=== PATIENT | male | born 1990 | race Caucasian/White ===

== ENCOUNTER 2018-11-01 01:31 | Emergency (ER) | payer BC ==
[2018-11-01] MEDS ORDERED: SODIUM CHLORIDE 0.9% 1,000 ML IV ONE (02:17)
--- NOTE | 2018-11-01 02:22 | ED ---
Abdominal Pain HPI - General Chief Complaint: Abdominal Pain Stated Complaint: Abd/Lower Back Pain Time Seen by Provider: 11/01/18 02:12 Source: patient Mode of arrival: ambulatory Limitations: no limitations - History of Present Illness Initial Comments: This patient is 28-year-old man who presents to be evaluated for abdominal pain. He states it started yesterday in the evening. It was initially lower in abdomen and he indicated the suprapubic area. He stated that over the course of the past evening and then today the pain went up to the epigastric area and then seem to be back in the lower abdomen with a little bit of right flank discomfort. He states the pain is kind of a dull aching. He rates it mild to moderate. It is constant. He has not noted worsening or relieving factors. He has not had any associated symptoms. There is no radiation of pain to the scrotum or testicles. No change in urination or urethral discharge. No fever or chills. No vomiting area no change in bowel movements. MD Complaint: abdominal pain Onset/Timin -: days(s) Location: suprapubic Radiation: none Migration to: epigastric, R flank Severity: mild Quality: dull Consistency: constant Improves With: nothing Worsens With: nothing Associated Symptoms: denies other symptoms - Related Data Previous Rx's Medication Instructions Recorded Famotidine [Pepcid] 20 mg PO BID #14 tablet 11/01/18 Famotidine [Pepcid] 20 mg PO BID #14 tablet 11/01/18 Allergies Allergy/AdvReac Type Severity Reaction Status Date / Time No Known Allergies Allergy Verified 11/01/18 01:47 Review of Systems ROS Statement: Those systems with pertinent positive or pertinent negative responses have been documented in the HPI. ROS Other: All systems not noted in ROS Statement are negative. Constitutional: Denies: fever, chills Respiratory: Denies: cough, dyspnea Cardiovascular: Denies: chest pain, palpitations, edema Gastrointestinal: Reports: abdominal pain. Denies: nausea, diarrhea, constipation, melena, hematochezia Genitourinary: Denies: urgency, dysuria, frequency, hematuria, discharge, testicular pain, testicular mass Musculoskeletal: Denies: back pain Skin: Denies: rash Past Medical History Past Medical History: No Reported History History of Any Multi-Drug Resistant Organisms: None Reported Past Surgical History: Adenoidectomy Past Psychological History: No Psychological Hx Reported Smoking Status: Never smoker Past Alcohol Use History: Occasional Past Drug Use History: None Reported General Exam Limitations: no limitations General appearance: alert, in no apparent distress Head exam: Present: atraumatic, normocephalic Eye exam: Present: normal appearance. Absent: scleral icterus, conjunctival injection Neck exam: Present: normal inspection Respiratory exam: Present: normal lung sounds bilaterally. Absent: respiratory distress, wheezes, rales, rhonchi, stridor Cardiovascular Exam: Present: regular rate, normal rhythm, normal heart sounds. Absent: systolic murmur, diastolic murmur, rubs, gallop GI/Abdominal exam: Present: soft, normal bowel sounds. Absent: distended, tenderness, guarding, rebound, rigid, mass, pulsatile mass, hernia Extremities exam: Present: normal inspection, normal capillary refill. Absent: pedal edema, calf tenderness Back exam: Present: normal inspection. Absent: CVA tenderness (R), CVA tenderness (L) Neurological exam: Present: alert Skin exam: Present: warm, dry, intact, normal color. Absent: rash Course Vital Signs 11/01/18 11/01/18 01:43 03:13 Temperature 98.0 F Pulse Rate 59 L 51 L Respiratory 16 15 Rate Blood Pressure 138/89 128/75 O2 Sat by Pulse 100 100 Oximetry Medical Decision Making - Lab Data Result diagrams: 11/01/18 02:10 11/01/18 02:10 Lab Results 11/01/18 11/01/18 11/01/18 Range/Units 02:10 02:10 02:10 WBC 7.8 (3.8-10.6) k/uL RBC 5.29 (4.30-5.90) m/uL Hgb 15.3 (13.0-17.5) gm/dL Hct 44.5 (39.0-53.0) % MCV 84.1 (80.0-100.0) fL MCH 28.9 (25.0-35.0) pg MCHC 34.3 (31.0-37.0) g/dL RDW 13.1 (11.5-15.5) % Plt Count 200 (150-450) k/uL Neutrophils % 71 % Lymphocytes % 21 % Monocytes % 4 % Eosinophils % 2 % Basophils % 0 % Neutrophils # 5.6 (1.3-7.7) k/uL Lymphocytes # 1.6 (1.0-4.8) k/uL Monocytes # 0.3 (0-1.0) k/uL Eosinophils # 0.1 (0-0.7) k/uL Basophils # 0.0 (0-0.2) k/uL Sodium 139 (137-145) mmol/L Potassium 3.7 (3.5-5.1) mmol/L Chloride 105 (98-107) mmol/L Carbon Dioxide 26 (22-30) mmol/L Anion Gap 8 mmol/L BUN 16 (9-20) mg/dL Creatinine 0.91 (0.66-1.25) mg/dL Est GFR (CKD-EPI)AfAm >90 (>60 ml/min/1.73 sqM) Est GFR (CKD-EPI)NonAf >90 (>60 ml/min/1.73 sqM) Glucose 121 H (74-99) mg/dL Calcium 9.6 (8.4-10.2) mg/dL Total Bilirubin 1.1 (0.2-1.3) mg/dL AST 26 (17-59) U/L ALT 32 (21-72) U/L Alkaline Phosphatase 69 (38-126) U/L C-Reactive Protein <5.0 (<10.0) mg/L Total Protein 7.6 (6.3-8.2) g/dL Albumin 4.7 (3.5-5.0) g/dL Amylase 72 (30-110) U/L Lipase 110 (23-300) U/L Urine Color Yellow Urine Appearance Clear (Clear) Urine pH 6.0 (5.0-8.0) Ur Specific [place] 1.030 (1.001-1.035) Urine Protein 1+ H (Negative) Urine Glucose (UA) Negative (Negative) Urine Ketones 1+ H (Negative) Urine Blood Negative (Negative) Urine Nitrite Negative (Negative) Urine Bilirubin Negative (Negative) Urine Urobilinogen <2.0 (<2.0) mg/dL Ur Leukocyte Esterase Negative (Negative) Urine RBC <1 (0-5) /hpf Urine WBC 2 (0-5) /hpf Urine Mucus Many H (None) /hpf Disposition Clinical Impression: Abdominal pain Disposition: HOME SELF-CARE Condition: Good Instructions: Abdominal Pain (ED) Prescriptions: Famotidine [Pepcid] 20 mg PO BID #14 tablet Famotidine [Pepcid] 20 mg PO BID #14 tablet Is patient prescribed a controlled substance at d/c from ED?: No Referrals: Kelly Overton III, MD [Primary Care Provider] - 1-2 days
[2018-11-01 02:36] LABS: Basophils % (A) 0 %; Eosinophils # (A) 0.1 k/uL (0-0.7); Eosinophils % (A) 2 %; HCT 44.5 % (39.0-53.0); HGB 15.3 gm/dL (13.0-17.5); Lymphocytes # (A) 1.6 k/uL (1.0-4.8); Lymphocytes % (A) 21 %; MCH 28.9 pg (25.0-35.0); MCHC 34.3 g/dL (31.0-37.0); MCV 84.1 fL (80.0-100.0); Monocytes # (A) 0.3 k/uL (0-1.0); Monocytes % (A) 4 %; Neutrophils # (A) 5.6 k/uL (1.3-7.7); Neutrophils % (A) 71 %; Platelet Count 200 k/uL (150-450); RBC 5.29 m/uL (4.30-5.90); RDW 13.1 % (11.5-15.5); WBC 7.8 k/uL (3.8-10.6)
[2018-11-01 02:40] LABS: Appearance,Urine Clear (Clear); Bilirubin,Urine Negative (Negative); Blood,Urine Negative (Negative); Color,Urine Yellow; Glucose,Urine (UA) Negative (Negative); Ketones,Urine 1+ (Negative); Leukocyte Esterase,Urine Negative (Negative); Mucus,Urine Many /hpf; Nitrite,Urine Negative (Negative); Protein,Urine 1+ (Negative); RBC,Urine <1 /hpf (0-5); Urobilinogen,Urine <2.0 mg/dL (<2.0); WBC,Urine 2 /hpf (0-5)
[2018-11-01 02:59] LABS: ALT 32 U/L (21-72); AST 26 U/L (17-59); Albumin 4.7 g/dL (3.5-5.0); Alkaline Phosphatase 69 U/L (38-126); Amylase 72 U/L (30-110); Anion Gap 8 mmol/L; Blood Urea Nitrogen 16 mg/dL (9-20); Calcium 9.6 mg/dL (8.4-10.2); Carbon Dioxide 26 mmol/L (22-30); Chloride 105 mmol/L (98-107); Glucose 121 mg/dL (74-99); Lipase 110 U/L (23-300); Potassium 3.7 mmol/L (3.5-5.1); Sodium 139 mmol/L (137-145); Total Bilirubin 1.1 mg/dL (0.2-1.3); Total Protein 7.6 g/dL (6.3-8.2)
[2018-11-01 03:13] LABS: C Reactive Protein <5.0 mg/L (<10.0)
[2018-11-01 05:24] VITALS: BP 125/75; PULSE 52; RESP 16; TEMP 98.1
== END 2018-11-01 05:22 | disposition home or self-care (01) ==
LOC: EC 01:31
DX: R10.30 Lower abdominal pain, unspecified (principal); R10.13 Epigastric pain
CPT/HCPCS: 36415; 80053; 81001; 82150; 83690; 85025; 86140; 96360; 99284

== ENCOUNTER → 2019-03-04 | Outpatient (CLI) | payer BC ==
--- NOTE | 2019-03-04 17:13 | US ---
EXAMINATION TYPE: US thyroid st tissue head/neck DATE OF EXAM: 03/04/2019 COMPARISON: NONE CLINICAL HISTORY: 28-year-old male R22.1 mass and lump Patient states he feels lump when he swallows. TECHNIQUE: Multiple sonographic images of the thyroid gland are obtained. FINDINGS: GLAND SIZE: Right Lobe: 5.0 x 1.3 x 1.7 cm Overall Parenchyma: homogenous Left Lobe: 4.6 x 0.9 x 1.7 cm Overall Parenchyma: homogeneous Isthmus Thickness: 0.3 cm NODULES RIGHT: # of nodules measured on right: 0 LEFT: # of nodules measured on left: 0 ISTHMUS: # of nodules measured in the isthmus: 0 Bilateral neck scanned, no evidence of lymphadenopathy. IMPRESSION: Borderline thyromegaly. Overall homogeneous glandular parenchyma without discrete nodule.
== END | disposition home or self-care (01) ==
LOC: RADUSWWP 15:39
PROVIDERS: ATTEND Family Medicine
DX: R22.1 Localized swelling, mass and lump, neck (principal)
CPT/HCPCS: 76536

== ENCOUNTER → 2019-03-21 | Outpatient (CLI) | payer BC ==
--- NOTE | 2019-03-21 10:45 | FL ---
EXAMINATION TYPE: FL barium swallow DATE OF EXAM: 03/21/2019 CLINICAL HISTORY: Dysphagia, localized swelling mass lump in neck TECHNIQUE: A double contrast esophagram is performed utilizing air and barium. Fluoroscopy time: 29 seconds Images: 43 COMPARISON: None FINDINGS: The esophagus shows normal motility and emptying into the stomach. No evidence of hiatal h ernia or stricture noted. No significant gastroesophageal reflux was seen during real time performanc e of this study. IMPRESSION: No significant abnormality is seen to account for patient's symptoms.
== END | disposition home or self-care (01) ==
LOC: RADFLWHC 08:10
PROVIDERS: ATTEND Family Medicine
DX: R22.1 Localized swelling, mass and lump, neck (principal)
CPT/HCPCS: 74220

== ENCOUNTER 2019-06-04 10:18 | Emergency (ER) | payer BC ==
[2019-06-04 10:30] VITALS: BP 133/75; PULSE 77; RESP 16; TEMP 98
--- NOTE | 2019-06-04 11:01 | ED ---
Skin/Abscess/FB HPI - General Chief complaint: Skin/Abscess/Foreign Body Stated complaint: Inquicker-Splinter Time Seen by Provider: 06/04/19 10:34 Source: patient, family, RN notes reviewed, old records reviewed Limitations: no limitations - History of Present Illness Initial comments: 28-year-old male presents today with right posterior thigh splinter. Patient reports he sitting on a wooden bench and slid. The splinter went through his shorts and twisted. This was on Monday. Family remove the splinter but patent 8 continues to have redness and swelling over the posterior thigh. - Related Data Previous Rx's Medication Instructions Recorded Cephalexin [Keflex] 500 mg PO Q8HR #21 cap 06/04/19 Allergies Allergy/AdvReac Type Severity Reaction Status Date / Time No Known Allergies Allergy Verified 06/04/19 10:44 Review of Systems ROS Statement: Those systems with pertinent positive or pertinent negative responses have been documented in the HPI. ROS Other: All systems not noted in ROS Statement are negative. Past Medical History Past Medical History: No Reported History History of Any Multi-Drug Resistant Organisms: None Reported Past Surgical History: Adenoidectomy Past Psychological History: No Psychological Hx Reported Smoking Status: Never smoker Past Alcohol Use History: Occasional Past Drug Use History: None Reported General Exam - General Exam Comments Initial Comments: 28-year-old male. Alert and oriented. No distress. General: Well appearing, well nourished, in no distress. Oriented x 3, normal mood and affect . Ambulating without difficulty. Skin: Good turgor, no rash, unusual bruising or prominent lesions Hair: Normal texture and distribution. HEENT: Head: Normocephalic, atraumatic, no visible or palpable masses, depressi ons, or scaring. Eyes: Visual acuity intact, conjunctiva clear, sclera non-icteric, EOM intact, PERRL. Ears: EACs clear, TMs translucent & cone of light visualized. hearing intact. Nose: No external lesions, mucosa non-inflamed, septum and turbinates normal Mouth: Mucous membranes moist, no mucosal lesions. Teeth/Gums: No obvious caries or periodontal disease. No gingival inflammation or significant resorption. Pharynx: Mucosa non-inflamed, no tonsillar hypertrophy or exudate Neck: Supple, without lesions, bruits, or adenopathy, thyroid non-enlarged and non-tender Heart: No cardiomegaly or thrills; regular rate and rhythm, no murmur or gallop Lungs: Clear to auscultation and percussion Abdomen: Bowel sounds normal, no tenderness, organomegaly, masses, or hernia Back: Spine normal without deformity or tenderness, no CVA tenderness Extremities: No amputations or deformities, as area of 3 cm erythema with a papule. Papules open and the splinter was removed. Musculoskeletal: Normal gait and station. No misalignment, asymmetry, crepitation, defects, tenderness, masses, effusions, decreased range of motion, instability, atrophy or abnormal strength or tone in the head, neck, spine, ribs, pelvis or extremities. Neurologic: CN 2-12 normal. Sensation to pain, touch, and proprioception normal. DTRs normal in upper and lower extremities. No pathologic reflexes. Limitations: no limitations Course Vital Signs 06/04/19 10:27 Temperature 98.0 F Pulse Rate 77 Respiratory 16 Rate Blood Pressure 133/75 O2 Sat by Pulse 99 Oximetry Medical Decision Making - Medical Decision Making 28-year-old male presents after having a splinter in the right posterior thigh. This has some area of erythema and induration measuring 3 7 m x 4 cm with a palpable in the middle. Papules opened with a set of tweezers and splinter was removed. Aerobic wound culture was obtained. We'll put the Patient on antibiotics for short course for cellulitis. I discussed following up with primary care doctor. all questions answered. Disposition Clinical Impression: Cellulitis Disposition: HOME SELF-CARE Condition: Good Instructions (If sedation given, give patient instructions): Cellulitis (ED) Additional Instructions: Please use medication as discussed. Please follow up with family doctor if symptoms have not improved over the next two days. Please return to the emergency room if your symptoms increase or worsen or for any other concerns. Patient advised to do warm compresses over the area of redness to promote further drainage. Prescriptions: Cephalexin [Keflex] 500 mg PO Q8HR #21 cap Is patient prescribed a controlled substance at d/c from ED?: No Referrals: Kelly Overton III, MD [Primary Care Provider] - 1-2 days Time of Disposition: 10:59
== END 2019-06-04 11:05 | disposition home or self-care (01) ==
LOC: EC 10:18
DX: L03.115 Cellulitis of right lower limb (principal)
CPT/HCPCS: 87070; 87205; 99284

== ENCOUNTER → 2020-08-11 | Outpatient (CLI) | payer BC ==
--- NOTE | 2020-08-11 08:21 | US ---
EXAMINATION TYPE: US abdomen complete DATE OF EXAM: 08/11/2020 COMPARISON: 04/09/2015 CLINICAL HISTORY: 30-year-old male R10.30 lower abdominal pain. TECHNIQUE: Multiple sonographic images of the abdomen are obtained. FINDINGS: EXAM MEASUREMENTS: Liver Length: 11.4 cm Gallbladder Wall: 0.1 cm CBD: 0.4 cm Spleen: 11.1 cm Right Kidney: 10.6 x 4.6 x 4.6 cm Left Kidney: 11.0 x 4.8 x 4.4 cm Pancreas: wnl Liver: wnl Gallbladder: wnl Evidence for sonographic Hwang's sign: No CBD: wnl Spleen: wnl Kidneys: No hydronephrosis. Upper IVC: wnl Abd Aorta: linear echogenic area seen midline in transverse and sagittal plane extending down from t he level of the SMA. Unable to determine if this is artifact. IMPRESSION: 1. A linear filling defect projects within the abdominal aorta extending down from the level of the S MA, seen in both sagittal and transverse planes. Unable to determine if this represents artifact or p athology such as a dissection. A conventional contrast enhanced CT of the abdomen and pelvis can furt her evaluate. 2. Otherwise, unremarkable sonographic examination of the abdomen. A Red level critical message alert has been initiated for Kelly Overton III, MD via the [employer] Critical Results System on 08/11/2020 8:18 AM. This message alert has been sent to Kelly joseph III, MD via the preferences provided by the clinician for the receipt of Radiology Critical Findi ngs. Message ID [id number].
== END | disposition home or self-care (01) ==
LOC: RADUSWWP 07:31
PROVIDERS: ATTEND Family Medicine
DX: R93.5 Abnormal findings on diagnostic imaging of other abdominal regions, including retroperitoneum (principal); R10.30 Lower abdominal pain, unspecified
CPT/HCPCS: 76700

== ENCOUNTER → 2020-08-11 | Outpatient (CLI) | payer BC ==
--- NOTE | 2020-08-11 12:43 | CT ---
EXAMINATION TYPE: CT abdomen pelvis w con DATE OF EXAM: 08/11/2020 COMPARISON: Ultrasound abdomen earlier today HISTORY: Lower abdominal pain, abnormal US results CT DLP: 447.6 mGycm, Automated Exposure Control for Dose Reduction was Utilized. CONTRAST: CT scan of the abdomen and pelvis is performed with oral and with IV Contrast, patient injected with 100 mL of Isovue 300. FINDINGS: LUNG BASES: No significant abnormality is appreciated. LIVER/GB: No significant abnormality is appreciated. PANCREAS: No significant abnormality is seen. SPLEEN: No significant abnormality is seen. ADRENALS: No significant abnormality is seen. KIDNEYS: Symmetric cortical medullary uptake and excretion from both kidneys without hydronephrosis s een bilaterally. BOWEL: Oral Contrast reaches level of sigmoid colon. No suspicious small or large bowel dilatation. PROSTATE/SEMINAL VESICLES: Prostate gland normal in size. Occasional scattered left-sided pelvic phle boliths. LYMPH NODES: No greater than 1cm abdominal or pelvic lymph nodes are appreciated. Prominent but subc entimeter lymph nodes throughout the mesentery. OSSEOUS STRUCTURES: No significant abnormality is seen. OTHER: The aorta shows satisfactory opacification without aneurysm or linear hypodensity to suggest d issection. IMPRESSION: No abdominal aortic dissection. No suspicious acute findings.
== END | disposition home or self-care (01) ==
LOC: RADCTMAIN 10:13
PROVIDERS: ATTEND Family Medicine
DX: R10.30 Lower abdominal pain, unspecified (principal); R93.5 Abnormal findings on diagnostic imaging of other abdominal regions, including retroperitoneum
CPT/HCPCS: 74177; Q9967

== ENCOUNTER → 2020-11-02 | Outpatient (CLI) | payer BC ==
--- NOTE | 2020-11-11 12:15 | EM ---
EVENT MONITOR Patient was monitored between the and the October. The rhythm strip revealed sinus mechanism with normal conduction. There was no evidence of atrial fibrillation or ventricular tachycardia. Episodes of sinus tachycardia were noted. ROBSON / WILLYN: [id number] /
== END | disposition home or self-care (01) ==
LOC: RADECHMAIN 12:22
PROVIDERS: ATTEND Family Medicine
DX: R00.0 Tachycardia, unspecified (principal)
CPT/HCPCS: 93270

== ENCOUNTER → 2021-07-26 | Outpatient (CLI) | payer BC ==
--- NOTE | 2021-07-27 04:38 | MR ---
EXAMINATION TYPE: MR brain wo/w con DATE OF EXAM: 07/26/2021 COMPARISON: None HISTORY: Headache. Left side pain. CONTRAST: Standard multiplanar, multisequence MRI departmental protocol utilizing 8ml mL intravenous Gadavist g adolinium contrast. Ventricles and sulci appear normal. There is no mass effect nor midline shift. Diffusion images show no evidence of an acute infarct. Sella turcica appears normal. Optic chiasm is normal. Corpus callosum appears normal. Sharpe-white shannen er structures have normal signal pattern. There is no evidence of cerebral edema. Brainstem is intact . There is no pathologic enhancement. There is normal enhancement of the venous sinuses. There is mucosal thickening in the maxillary and ethmoid sinuses. IMPRESSION: Negative MR scan of the brain. Maxillary and ethmoid sinusitis noted.
== END | disposition home or self-care (01) ==
LOC: RADMRIMAIN 18:34
PROVIDERS: ATTEND Nurse Practitioner Family
DX: R51.9 Headache, unspecified (principal); J32.2 Chronic ethmoidal sinusitis
CPT/HCPCS: 70553; A9585

== ENCOUNTER 2021-10-13 09:14 | Day surgery (SDC) | payer BC ==
[2021-10-11 11:13] VITALS: BMI 21.7
[~2021-10-13 09:14] MED LIST: LACTATED RINGERS 1,000 ML IV SCH
[2021-10-13 09:37] VITALS: TEMP 96.9
[2021-10-13] MEDS ORDERED: PROPOFOL 10 MG/ML 20 ML VIAL IV ONE (10:25)
--- NOTE | 2021-10-13 10:37 | P.PCN ---
Date of Procedure: 10/13/21 Procedure(s) Performed: BRIEF HISTORY: Patient is a 31-year-old pleasant white male scheduled for an elective colonoscopy as a part of evaluation change in bowel habits for the last 2 months duration. His been having alternating diarrhea and constipation but no rectal bleeding. He denies any family history of inflammatory bowel disease. PROCEDURE PERFORMED: Colonoscopy. PREOPERATIVE DIAGNOSIS: Change in bowel habits of 2 months duration. IV sedation per Anesthesia. PROCEDURE: After informed consent was obtained, the patient, was brought into the endoscopy unit. IV sedation was administered by Anesthesia under continuous monitoring. Digital rectal examination was normal. Initially the Olympus CF-160 flexible video colonoscope was then inserted in the rectum, gradually advanced into the cecum without any difficulty. Careful examination was performed as the scope was gradually being withdrawn. Ileocecal valve and the appendiceal orifice were visualized and appeared normal. Terminal ileum was intubated and 20 cm visualized and appeared normal. Prep was excellent. Mucosa of the cecum, ascending colon, transverse colon, descending colon, sigmoid colon, and rectum appeared normal. Retroflexion was performed in the rectum and no lesions were seen. The patient tolerated the procedure well. IMPRESSION: Normal-appearing colon from rectum to cecum with no evidence of colorectal neoplasia . Normal-appearing terminal ileum with no evidence of ileitis RECOMMENDATIONS: Findings of this examination were discussed with the patient as well as his family. He was advised to be on a high-fiber diet and take fiber supplements on a regular basis.
[2021-10-13 11:07] VITALS: BP 125/60; PULSE 50; RESP 20
== END 2021-10-13 11:10 | disposition home or self-care (01) ==
LOC: ORWHC2ENDO 09:14
PROVIDERS: ATTEND Internal Medicine Gastroenterology
DX: R19.4 Change in bowel habit (principal)
CPT/HCPCS: 45378; J2704

== ENCOUNTER 2022-08-12 18:37 | Emergency (ER) | payer BC ==
[2022-08-12] MEDS ORDERED: SODIUM CHLORIDE 0.9% 1,000 ML IV STA (18:54)
[2022-08-12] MEDS ORDERED: LORazepam 2 MG/ML INJ IV STA (18:55)
--- NOTE | 2022-08-12 19:11 | ED ---
General Adult HPI - General Chief complaint: Chest Pain Stated complaint: Chest pain Time Seen by Provider: 08/12/22 18:49 Source: patient, RN notes reviewed, old records reviewed Mode of arrival: ambulatory Limitations: no limitations - History of Present Illness Initial comments: 32-year-old male presents for evaluation of lightheadedness, and central chest pain. Patient states he's had chronic chest pain and has had cardiac testing in the past. He states this is a daily occurrence. He has worsened this evening while eating dinner. Patient was eating a restaurant, had had salad and rales he developed worsening anterior chest pain and was quite lightheaded and almost passing out. - Related Data Home Medications Medication Instructions Recorded Confirmed No Known Home Medications 10/11/21 10/13/21 Allergies Allergy/AdvReac Type Severity Reaction Status Date / Time No Known Allergies Allergy Verified 10/13/21 09:35 Review of Systems ROS Statement: Those systems with pertinent positive or pertinent negative responses have been documented in the HPI. ROS Other: All systems not noted in ROS Statement are negative. Past Medical History Past Medical History: No Reported History History of Any Multi-Drug Resistant Organisms: None Reported Past Surgical History: Adenoidectomy Past Anesthesia/Blood Transfusion Reactions: No Reported Reaction Past Psychological History: No Psychological Hx Reported Smoking Status: Never smoker Past Alcohol Use History: Occasional Past Drug Use History: None Reported - Past Family History Mother Family Medical History: No Reported History General Exam Limitations: no limitations General appearance: anxious, in distress Head exam: Present: atraumatic, normocephalic Eye exam: Present: normal appearance, PERRL ENT exam: Present: normal exam Neck exam: Present: normal inspection. Absent: tenderness, meningismus Respiratory exam: Absent: respiratory distress, wheezes, rales Cardiovascular Exam: Present: normal rhythm, tachycardia GI/Abdominal exam: Present: soft. Absent: distended, tenderness, guarding Extremities exam: Present: normal inspection, normal capillary refill. Absent: pedal edema Neurological exam: Present: alert Psychiatric exam: Present: anxious Skin exam: Present: warm, pallor. Absent: cyanosis Course Vital Signs 08/12/22 18:40 Temperature 98.1 F Pulse Rate 136 H Respiratory 20 Rate Blood Pressure 134/65 O2 Sat by Pulse 98 Oximetry - Reevaluation(s) Reevaluation #1: 08/12/22 19:10 further history does indicate that the patient had taken a marijuana gummy earlier in the evening. EKG Findings - EKG Comments: EKG Findings:: EKG: Obtained at 1846, sinus tachycardia, rate of 116, ID interval 125, QRS duration 97, QTC 382, no ST segment. Repeat EKG: Obtained at 1856, sinus rhythm with a rate of 97, ID interval 156, QRS duration 96, QTC [address] segment elevation. Medical Decision Making - Medical Decision Making 32-year-old male with an episode of chest pain, history does indicate that this may have been related to marijuana ingestion. Patient is quite anxious upon arrival. EKG is sinus without ST segment elevation. Chest x-ray clear. All laboratory testing is unremarkable. Patient does return to normal while in the emergency department without further complaint. He will monitor symptoms, follow with primary care physician. - Lab Data Result diagrams: 08/12/22 19:37 08/12/22 19:37 Lab Results 08/12/22 08/12/22 08/12/22 Range/Units 19:23 19:23 19:37 WBC 5.0 (3.8-10.6) k/uL RBC 4.91 (4.30-5.90) m/uL Hgb 14.8 (13.0-17.5) gm/dL Hct 40.9 (39.0-53.0) % MCV 83.3 (80.0-100.0) fL MCH 30.2 (25.0-35.0) pg MCHC 36.3 (31.0-37.0) g/dL RDW 12.1 (11.5-15.5) % Plt Count 183 (150-450) k/uL MPV 7.7 Neutrophils % (Manual) 49 % Lymphocytes % (Manual) 43 % Monocytes % (Manual) 3 % Eosinophils % (Manual) 4 % Basophils % (Manual) 1 % Neutrophils # (Manual) 2.45 (1.3-7.7) k/uL Lymphocytes # (Manual) 2.15 (1.0-4.8) k/uL Monocytes # (Manual) 0.15 (0-1.0) k/uL Eosinophils # (Manual) 0.20 (0-0.7) k/uL Basophils # (Manual) 0.05 (0-0.2) k/uL Nucleated RBCs 0 (0-0) /100 WBC Manual Slide Review Performed RBC Morphology Normal PT (9.0-12.0) sec INR (<1.2) APTT (22.0-30.0) sec D-Dimer (<0.60) mg/L FEU Sodium (137-145) mmol/L Potassium (3.5-5.1) mmol/L Chloride (98-107) mmol/L Carbon Dioxide (22-30) mmol/L Anion Gap mmol/L BUN (9-20) mg/dL Creatinine (0.66-1.25) mg/dL Est GFR (CKD-EPI)AfAm (>60 ml/min/1.73 sqM) Est GFR (CKD-EPI)NonAf (>60 ml/min/1.73 sqM) Glucose (74-99) mg/dL Calcium (8.4-10.2) mg/dL Magnesium (1.6-2.3) mg/dL Total Bilirubin (0.2-1.3) mg/dL AST (17-59) U/L ALT (4-49) U/L Alkaline Phosphatase (38-126) U/L Troponin I (0.000-0.034) ng/mL Total Protein (6.3-8.2) g/dL Albumin (3.5-5.0) g/dL Lipase (23-300) U/L Urine Color Light Yellow Urine Appearance Clear (Clear) Urine pH 5.0 (5.0-8.0) Ur Specific [place] 1.010 (1.001-1.035) Urine Protein Negative (Negative) Urine Glucose (UA) Negative (Negative) Urine Ketones Negative (Negative) Urine Blood Negative (Negative) Urine Nitrite Negative (Negative) Urine Bilirubin Negative (Negative) Urine Urobilinogen <2.0 (<2.0) mg/dL Ur Leukocyte Esterase Negative (Negative) Urine Opiates Screen Not Detected (NotDetected) Ur Oxycodone Screen Not Detected (NotDetected) Urine Methadone Screen Not Detected (NotDetected) Ur Propoxyphene Screen Not Detected (NotDetected) Ur Barbiturates Screen Not Detected (NotDetected) U Tricyclic Antidepress Not Detected (NotDetected) Ur Phencyclidine Scrn Not Detected (NotDetected) Ur Amphetamines Screen Not Detected (NotDetected) U Methamphetamines Scrn Not Detected (NotDetected) U Benzodiazepines Scrn Not Detected (NotDetected) Urine Cocaine Screen Not Detected (NotDetected) U Marijuana (THC) Screen Detected H (NotDetected) 08/12/22 08/12/22 08/12/22 Range/Units 19:37 19:37 19:37 WBC (3.8-10.6) k/uL RBC (4.30-5.90) m/uL Hgb (13.0-17.5) gm/dL Hct (39.0-53.0) % MCV (80.0-100.0) fL MCH (25.0-35.0) pg MCHC (31.0-37.0) g/dL RDW (11.5-15.5) % Plt Count (150-450) k/uL MPV Neutrophils % (Manual) % Lymphocytes % (Manual) % Monocytes % (Manual) % Eosinophils % (Manual) % Basophils % (Manual) % Neutrophils # (Manual) (1.3-7.7) k/uL Lymphocytes # (Manual) (1.0-4.8) k/uL Monocytes # (Manual) (0-1.0) k/uL Eosinophils # (Manual) (0-0.7) k/uL Basophils # (Manual) (0-0.2) k/uL Nucleated RBCs (0-0) /100 WBC Manual Slide Review RBC Morphology PT 10.8 (9.0-12.0) sec INR 1.0 (<1.2) APTT 22.3 (22.0-30.0) sec D-Dimer <0.17 (<0.60) mg/L FEU Sodium 138 (137-145) mmol/L Potassium 3.9 (3.5-5.1) mmol/L Chloride 101 (98-107) mmol/L Carbon Dioxide 23 (22-30) mmol/L Anion Gap 14 mmol/L BUN 20 (9-20) mg/dL Creatinine 0.87 (0.66-1.25) mg/dL Est GFR (CKD-EPI)AfAm >90 (>60 ml/min/1.73 sqM) Est GFR (CKD-EPI)NonAf >90 (>60 ml/min/1.73 sqM) Glucose 103 H (74-99) mg/dL Calcium 9.0 (8.4-10.2) mg/dL Magnesium 1.9 (1.6-2.3) mg/dL Total Bilirubin 0.7 (0.2-1.3) mg/dL AST 30 (17-59) U/L ALT 19 (4-49) U/L Alkaline Phosphatase 68 (38-126) U/L Troponin I <0.012 (0.000-0.034) ng/mL Total Protein 6.9 (6.3-8.2) g/dL Albumin 4.6 (3.5-5.0) g/dL Lipase 119 (23-300) U/L Urine Color Urine Appearance (Clear) Urine pH (5.0-8.0) Ur Specific [place] (1.001-1.035) Urine Protein (Negative) Urine Glucose (UA) (Negative) Urine Ketones (Negative) Urine Blood (Negative) Urine Nitrite (Negative) Urine Bilirubin (Negative) Urine Urobilinogen (<2.0) mg/dL Ur Leukocyte Esterase (Negative) Urine Opiates Screen (NotDetected) Ur Oxycodone Screen (NotDetected) Urine Methadone Screen (NotDetected) Ur Propoxyphene Screen (NotDetected) Ur Barbiturates Screen (NotDetected) U Tricyclic Antidepress (NotDetected) Ur Phencyclidine Scrn (NotDetected) Ur Amphetamines Screen (NotDetected) U Methamphetamines Scrn (NotDetected) U Benzodiazepines Scrn (NotDetected) Urine Cocaine Screen (NotDetected) U Marijuana (THC) Screen (NotDetected) Disposition Clinical Impression: Chest pain Disposition: HOME SELF-CARE Condition: Good Instructions (If sedation given, give patient instructions): Chest Pain (ED) Is patient prescribed a controlled substance at d/c from ED?: No Referrals: Kelly Overton III, MD [Primary Care Provider] - 1-2 days Time of Disposition: 21:26
[2022-08-12 19:34] LABS: Appearance,Urine Clear (Clear); Bilirubin,Urine Negative (Negative); Blood,Urine Negative (Negative); Color,Urine Light Yellow; Glucose,Urine (UA) Negative (Negative); Ketones,Urine Negative (Negative); Leukocyte Esterase,Urine Negative (Negative); Nitrite,Urine Negative (Negative); Protein,Urine Negative (Negative); Urobilinogen,Urine <2.0 mg/dL (<2.0)
[2022-08-12 19:44] LABS: Amphetamine Screen,Urine Not Detected (NotDetected); Barbiturate Screen,Urine Not Detected (NotDetected); Benzodiazepines Screen,Urine Not Detected (NotDetected); Cocaine Screen,Urine Not Detected (NotDetected); Methadone Screen, Urine Not Detected (NotDetected); Opiate Screen,Urine Not Detected (NotDetected); Oxycodone Screen, Urine Not Detected (NotDetected); Phencyclidine Screen,Urine Not Detected (NotDetected); Tricyclic Antidepressant,Urine Not Detected (NotDetected); Urn Cannabinoid Scrn Detected (NotDetected)
--- NOTE | 2022-08-12 19:47 | XR ---
EXAMINATION TYPE: XR chest 1V portable DATE OF EXAM: 08/12/2022 COMPARISON: NONE HISTORY: Pain TECHNIQUE: Single view FINDINGS: Heart and mediastinum are normal. Lungs are clear. Diaphragm is normal. Bony thorax is inta ct. The pulmonary vascularity is normal. IMPRESSION: Normal chest.
[2022-08-12 19:49] LABS: HCT 40.9 % (39.0-53.0); HGB 14.8 gm/dL (13.0-17.5); MCH 30.2 pg (25.0-35.0); MCHC 36.3 g/dL (31.0-37.0); MCV 83.3 fL (80.0-100.0); Mean Platelet Volume 7.7; Platelet Count 183 k/uL (150-450); RBC 4.91 m/uL (4.30-5.90); RDW 12.1 % (11.5-15.5)
[2022-08-12 19:53] LABS: ALT 19 U/L (4-49); AST 30 U/L (17-59); African American GFR (CKD) >90 (>60 ml/min/1.73 sqM); Albumin 4.6 g/dL (3.5-5.0); Alkaline Phosphatase 68 U/L (38-126); Anion Gap 14 mmol/L; Blood Urea Nitrogen 20 mg/dL (9-20); Carbon Dioxide 23 mmol/L (22-30); Chloride 101 mmol/L (98-107); Glucose 103 mg/dL (74-99); Lipase 119 U/L (23-300); Magnesium 1.9 mg/dL (1.6-2.3); Non-African American GFR(CKD) >90 (>60 ml/min/1.73 sqM); Potassium 3.9 mmol/L (3.5-5.1); Sodium 138 mmol/L (137-145); Total Bilirubin 0.7 mg/dL (0.2-1.3); Total Protein 6.9 g/dL (6.3-8.2)
[2022-08-12 20:13] LABS: Partial Thromboplastin Time 22.3 sec (22.0-30.0); Prothrombin Time 10.8 sec (9.0-12.0)
[2022-08-12 20:33] LABS: Basophils # (M) 0.05 k/uL (0-0.2); Lymphocytes # (M) 2.15 k/uL (1.0-4.8); Monocytes # (M) 0.15 k/uL (0-1.0); Neutrophils # (M) 2.45 k/uL (1.3-7.7); Neutrophils % (M) 49 %; Nucleated Red Blood Cells 0 /100 WBC (0-0); RBC Morphology Normal; Total Cells Counted 100
[2022-08-12 21:34] VITALS: BP 122/82; PULSE 72; RESP 16; TEMP 98.2
== END 2022-08-12 21:35 | disposition home or self-care (01) ==
LOC: EC 18:37
DX: R07.9 Chest pain, unspecified (principal)
CPT/HCPCS: 36415; 71045; 80053; 80306; 81003; 83690; 83735; 84484; 85025; 85379; 85610; 85730; 93005; 99285

== ENCOUNTER → 2022-09-22 | Outpatient (CLI) | payer BC ==
--- NOTE | 2022-09-22 09:01 | CT ---
EXAMINATION TYPE: CT abdomen pelvis w con DATE OF EXAM: 09/22/2022 COMPARISON: 08/11/2020 HISTORY: generalized abd pain, shifts all over CT DLP: 891 mGycm CONTRAST: CT scan of the abdomen and pelvis is performed with Oral Contrast and with IV Contrast, patient injec esequiel with 70 mL of Isovue 300. FINDINGS: LUNG BASES-: No visible nodule. No infiltrate. LIVER/GB: No calcified gallstones. No space occupying hepatic lesion. Biliary tree is of normal ca liber. PANCREAS: No inflammation. No distinct mass. SPLEEN: No splenic enlargement. No lesion seen. ADRENALS: No nodule. No thickening. KIDNEYS/BLADDER: No hydronephrosis. No nephrolithiasis. No distinct renal mass. Urinary bladder g rossly unremarkable. BOWEL: Nonvisualization of the appendix. Normal bowel caliber. No inflammation. GENITAL ORGANS: No gross abnormality. LYMPH NODES: No greater than 1cm abdominal or pelvic lymph nodes are appreciated. AORTA: No significant abnormality. OSSEOUS STRUCTURES: No significant abnormality is seen. OTHER: No significant additional abnormality is seen. IMPRESSION: 1. No significant abnormality to account for the patient's symptoms.
--- NOTE | 2022-09-22 10:58 | XR ---
EXAMINATION TYPE: XR chest 2V, XR ribs 2 views RT DATE OF EXAM: 09/22/2022 COMPARISON: Chest 08/12/2022 HISTORY: 32-year-old male right lower rib pain. FINDINGS: Chest: The cardiomediastinal silhouette, aorta, and pulmonary vasculature are within normal limits. There is hyperinflation. Otherwise, lungs and pleural spaces are clear. Right RIBS: No displaced right rib fracture is seen. IMPRESSION: Hyperinflation may relate to depth of inspiration or underlying emphysema. Correlate for smoking hist ory. Otherwise, no acute cardiopulmonary process. No displaced right rib fracture seen.
== END | disposition home or self-care (01) ==
LOC: RADCTMAIN 06:37
PROVIDERS: ATTEND Family Medicine
DX: K40.90 Unilateral inguinal hernia, without obstruction or gangrene, not specified as recurrent (principal); Q67.6 Pectus excavatum; R10.30 Lower abdominal pain, unspecified; R10.33 Periumbilical pain; R07.82 Intercostal pain; R07.89 Other chest pain
CPT/HCPCS: 71100; 71046; 74177; Q9967 ×2

== ENCOUNTER 2023-01-13 18:04 | Emergency (ER) | payer BC ==
[2023-01-13 18:12] VITALS: BP 141/88; PULSE 77; RESP 20; TEMP 97.8
--- NOTE | 2023-01-13 19:04 | ED ---
Chest Pain HPI - General Chief Complaint: Chest Pain Stated Complaint: chest discomfort Time Seen by Provider: 01/13/23 18:28 Source: patient Mode of arrival: ambulatory Limitations: no limitations - History of Present Illness Initial Comments: This patient is a 32-year-old man here to have evaluation after he developed substernal chest pain and nausea. The patient states that he had been finishing a meal at local restaurant. Patient states there was no dyspnea, diaphoresis, palpitations, lightheadedness or syncope. No smoking. MD Complaint: chest pain -: minutes(s) Onset: after eating Pain Location: substernal Pain Radiation: none Severity: moderate Quality: dull Consistency: constant Improves With: nothing Worsens With: nothing Anginal Symptoms: nausea Treatments Prior to Arrival: none - Related Data Home Medications Medication Instructions Recorded Confirmed No Known Home Medications 10/11/21 10/13/21 Allergies Allergy/AdvReac Type Severity Reaction Status Date / Time No Known Allergies Allergy Verified 01/13/23 18:12 Review of Systems ROS Statement: Those systems with pertinent positive or pertinent negative responses have been documented in the HPI. ROS Other: All systems not noted in ROS Statement are negative. Constitutional: Denies: fever, chills, weakness Eyes: Denies: vision change Respiratory: Denies: cough, dyspnea Cardiovascular: Reports: chest pain. Denies: palpitations, edema, syncope Gastrointestinal: Reports: nausea. Denies: abdominal pain, vomiting, diarrhea Genitourinary: Denies: dysuria, hematuria Musculoskeletal: Denies: back pain Skin: Denies: rash Neurological: Denies: headache, weakness EKG Findings - EKG Results: EKG: interpreted by EB SMITH, sinus rhythm (Rate 73 bpm), normal axis, normal QRS, normal ST/T, no acute changes - MT, Pacemaker, Normal: Normal tracing: normal tracing Past Medical History Past Medical History: No Reported History History of Any Multi-Drug Resistant Organisms: None Reported Past Surgical History: Adenoidectomy Past Anesthesia/Blood Transfusion Reactions: No Reported Reaction Past Psychological History: No Psychological Hx Reported Smoking Status: Never smoker Past Alcohol Use History: Occasional Past Drug Use History: None Reported - Past Family History Mother Family Medical History: No Reported History General Exam Limitations: no limitations General appearance: alert, in no apparent distress Head exam: Present: atraumatic, normocephalic Eye exam: Present: normal appearance. Absent: scleral icterus, conjunctival injection Neck exam: Present: normal inspection, full ROM Respiratory exam: Present: normal lung sounds bilaterally. Absent: respiratory distress, wheezes, rales, rhonchi, stridor, chest wall tenderness, accessory muscle use Cardiovascular Exam: Present: regular rate, normal rhythm, normal heart sounds. Absent: systolic murmur, diastolic murmur, rubs, gallop GI/Abdominal exam: Present: soft. Absent: distended, tenderness, guarding, rebound, rigid, mass Extremities exam: Present: normal inspection, normal capillary refill. Absent: pedal edema, calf tenderness Back exam: Present: normal inspection. Absent: CVA tenderness (R), CVA tenderness (L) Neurological exam: Present: alert Skin exam: Present: warm, dry, intact, normal color. Absent: rash Course Vital Signs 01/13/23 18:10 Temperature 97.8 F Pulse Rate 77 Respiratory 20 Rate Blood Pressure 141/88 O2 Sat by Pulse 99 Oximetry Chest Pain [facility] - MDM This patient is a 32-year-old man here with chest pain that had developed after a meal. The patient with normal physical exam and normal EKG. After the patient was evaluated, they informed me that travel had been booked an approximately 2 hours time to fly to [place]. I did recommend having the remainder of the evaluation, x-ray, lab studies, I explained that based on his profile there is very small chance of cardiac etiology. At this point they signed out AMA. I discussed appropriate further care and follow-up as well as return parameters. Was pt. sent in by a medical professional or institution (Dr. PA, COOLING TOWER TECHNICIAN, urgent care, hospital, or custodial...) When possible be specific @ -[No] Did you speak to anyone other than the patient for history (EMS, parent, family, police, friend...)? What history was obtained from this source @ -[Family Did you review nursing and triage notes (agree or disagree)? Why? @ -[I reviewed and agree with nursing and triage notes] Were old charts reviewed (outside hosp., previous admission, EMS record, old EKG, old radiological studies, urgent care reports/EKG's, custodial records)? Report findings @ -[No old charts were reviewed] Differential Diagnosis (chest pain, altered mental status, abdominal pain women, abdominal pain men, vaginal bleeding, weakness, fever, dyspnea, syncope, headache, dizziness, GI bleed, back pain, seizure, CVA, palpatations, mental health, musculoskeletal)? @ -[Differential Chest Pain: Stable Angina, Unstable Angina, STEMI, NSTEMI Aortic Dissection, Pneumothorax, Musculoskeletal, Esophageal Spasm GERD, Cholecystitis, Pancreatitis, Zoster, this is not meant to be an all-inclusive list. EKG interpreted by me (3pts min.). @ -[As above] X-rays interpreted by me (1pt min.). @ -[None done] CT interpreted by me (1pt min.). @ -[None done] U/S interpreted by me (1pt. min.). @ -[None done] What testing was considered but not performed or refused? (CT, X-rays, U/S, labs)? Why? @ -[None] What meds were considered but not given or refused? Why? @ -[None] Did you discuss the management of the patient with other professionals (professionals i.e. , PA, COOLING TOWER TECHNICIAN, lab, RT, psych nurse, social work program coordinator, casino cashier manager, teacher, chief information security officer, skilled nursing case manager)? Give summary @ -[No] Was smoking cessation discussed for >3mins.? @ -[No] Was critical care preformed (if so, how long)? @ -[No] Were there social determinants of health that impacted care today? How? (Homelessness, low income, unemployed, alcoholism, drug addiction, transportation, low edu. Level, literacy, decrease access to med. care, prison, rehab)? @ -[No] Was there de-escalation of care discussed even if they declined (Discuss DNR or withdrawal of care, Hospice)? DNR status @ -[No] What co-morbidities impacted this encounter? (DM, HTN, Smoking, COPD, CAD, C ancer, CVA, ARF, Chemo, Hep., AIDS, mental health diagnosis, sleep apnea, morbid obesity)? @ -[None] Was patient admitted / discharged? Hospital course, mention meds given and route, prescriptions, significant lab abnormalities, going to OR and other pertinent info. @ -[The patient left prior to the return of his studies, after we had lengthy discussion of associated risks. Undiagnosed new problem with uncertain prognosis? @ -[No] Drug Therapy requiring intensive monitoring for toxicity (Heparin, Nitro, Insulin, Cardizem)? @ -[No] Were any procedures done? @ -[No] Diagnosis/symptom? @ -[Acute chest pain Acute, or Chronic, or Acute on Chronic? @ -[default] Uncomplicated (without systemic symptoms) or Complicated (systemic symptoms)? @ -[Uncomplicated Side effects of treatment? @ -[No] Exacerbation, Progression, or Severe Exacerbation? @ -[No] Poses a threat to life or bodily function? How? (Chest pain, [place], MT, pneumonia, PE, COPD, DKA, ARF, appy, cholecystitis, CVA, Diverticulitis, Homicidal, Suicidal, threat to staff... and all critical care pts) @ -[Yes there is risk of cardiac etiology and therefore possible threat to life Disposition Clinical Impression: Chest pain Disposition: Left Against Medical Advice Condition: Stable Is patient prescribed a controlled substance at d/c from ED?: No Referrals: Kelly Overton III, MD [Primary Care Provider] - 1-2 days
[2023-01-13 19:15] LABS: Basophils % (A) 1 %; Eosinophils # (A) 0.2 k/uL (0-0.7); Eosinophils % (A) 2 %; HCT 43.3 % (39.0-53.0); Lymphocytes # (A) 1.9 k/uL (1.0-4.8); Lymphocytes % (A) 28 %; MCH 29.1 pg (25.0-35.0); MCHC 34.6 g/dL (31.0-37.0); MCV 84.1 fL (80.0-100.0); Mean Platelet Volume 7.1; Monocytes # (A) 0.3 k/uL (0-1.0); Monocytes % (A) 5 %; Neutrophils # (A) 4.2 k/uL (1.3-7.7); Neutrophils % (A) 62 %; Platelet Count 197 k/uL (150-450); RBC 5.15 m/uL (4.30-5.90); RDW 13.1 % (11.5-15.5); WBC 6.8 k/uL (3.8-10.6)
[2023-01-13 19:24] LABS: ALT 22 U/L (4-49); AST 31 U/L (17-59); African American GFR (CKD) >90 (>60 ml/min/1.73 sqM); Albumin 4.6 g/dL (3.5-5.0); Alkaline Phosphatase 74 U/L (38-126); Amylase 75 U/L (30-110); Anion Gap 10 mmol/L; Blood Urea Nitrogen 19 mg/dL (9-20); Calcium 9.1 mg/dL (8.4-10.2); Carbon Dioxide 27 mmol/L (22-30); Chloride 102 mmol/L (98-107); Glucose 131 mg/dL (74-99); Lipase 129 U/L (23-300); Magnesium 1.9 mg/dL (1.6-2.3); Non-African American GFR(CKD) >90 (>60 ml/min/1.73 sqM); Potassium 4.1 mmol/L (3.5-5.1); Sodium 139 mmol/L (137-145); Total Bilirubin 0.8 mg/dL (0.2-1.3); Total Protein 7.5 g/dL (6.3-8.2)
--- NOTE | 2023-01-13 19:31 | XR ---
EXAMINATION TYPE: XR chest 1V portable DATE OF EXAM: 01/13/2023 COMPARISON: 09/22/2022 HISTORY: Chest pain TECHNIQUE: FINDINGS: Heart and mediastinum are normal. Lungs are clear. Diaphragm is normal. Bony thorax appears normal IMPRESSION: Normal chest. No change.
[2023-01-13 19:34] LABS: Partial Thromboplastin Time 23.8 sec (22.0-30.0); Prothrombin Time 10.7 sec (9.0-12.0)
== END 2023-01-13 19:20 | disposition left against medical advice (07) ==
LOC: EC 18:04
DX: R07.89 Other chest pain (principal)
CPT/HCPCS: 36415; 71045; 80053; 82150; 83690; 83735; 84484; 85025; 85379; 85610; 85730; 99285

== ENCOUNTER 2023-04-26 09:17 | Day surgery (SDC) | payer BC ==
[2023-04-20 10:29] VITALS: BMI 21.7
[~2023-04-26 09:17] MED LIST changes: -LACTATED RINGERS 1,000 ML IV SCH; +LIDOCAINE 1% (10MG/ML) FOR IV START INTRADERMA PRN
[2023-04-26 10:24] VITALS: TEMP 98.6
[2023-04-26] MEDS: LACTATED RINGERS 1,000 ML IV SCH ×2 (10:34→10:53)
[2023-04-26] MEDS ORDERED: PROPOFOL 10 MG/ML 20 ML VIAL IV ONE (10:58)
[2023-04-26] MEDS ORDERED: LIDOCAINE 2% INJ 20 MG/ML (2 ML VIAL) ONE (10:58)
--- NOTE | 2023-04-26 11:05 | P.PCN ---
Date of Procedure: 04/26/23 Procedure(s) Performed: BRIEF HISTORY: Patient is a 32-year-old, pleasant, white male scheduled for an upper endoscopy as a part of evaluation of epigastric pain for the last few months duration. He was treated with omeprazole 20 mg daily for 2 months with no help.. PROCEDURE PERFORMED: Esophagogastroduodenoscopy with biopsy. PREOPERATIVE DIAGNOSIS: Chronic epigastric pain. IV sedation per anesthesia. PROCEDURE: After informed consent was obtained, the patient was brought into the endoscopy unit. IV sedation was administered by Anesthesia under continuous monitoring. Initially the Olympus GIF-140 video endoscope was inserted into the mouth. Esophagus intubated without any difficulty. It was gradually advanced into the stomach and duodenum and carefully examined. The bulb and the second part of the duodenum appeared normal. Biopsies were done from the duodenum to rule out celiac disease. The scope at this time was withdrawn to the stomach, adequately insufflated with air, and upon careful examination, mucosa of the antrum, had minimal erythema which was biopsied. Mucosa of the body, cardia and the fundus appeared normal. The scope was then withdrawn into the esophagus. The GE junction was located at 41 cm from the incisors. The esophagus appeared normal. There were no erosions or ulcerations seen, biopsies were done from the distal esophagus and the patient tolerated the procedure well. IMPRESSION: 1. Minimal antral gastritis. 2. No evidence of esophagitis or peptic ulcer. RECOMMENDATIONS: The findings of this examination were discussed with the patient as well as his family. He was advised to follow with the biopsy results. Recommend a trial of Pepcid 20 mg twice daily for 6 weeks. He still remains symptomatic he was advised to follow up in office for further management..
[2023-04-26 11:12] VITALS: RESP 18
[2023-04-26 11:27] VITALS: BP 113/74; PULSE 50
== END 2023-04-26 11:42 | disposition home or self-care (01) ==
LOC: ORWHC2ENDO 09:17
PROVIDERS: ATTEND Internal Medicine Gastroenterology
DX: K29.90 Gastroduodenitis, unspecified, without bleeding (principal); K21.00 Gastro-esophageal reflux disease with esophagitis, without bleeding; E78.5 Hyperlipidemia, unspecified
CPT/HCPCS: 88305; 88312; 43239; J2704; J2001

== ENCOUNTER 2023-08-21 04:13 | Emergency (ER) | payer BC ==
[2023-08-21 04:33] VITALS: BP 114/80; PULSE 106; RESP 18; TEMP 97.5
[2023-08-21 05:00] LABS: Basophils % (A) 0 %; Eosinophils # (A) 0.2 k/uL (0-0.7); Eosinophils % (A) 2 %; HCT 45.2 % (39.0-53.0); HGB 15.6 gm/dL (13.0-17.5); Lymphocytes # (A) 1.7 k/uL (1.0-4.8); Lymphocytes % (A) 26 %; MCH 29.2 pg (25.0-35.0); MCHC 34.6 g/dL (31.0-37.0); MCV 84.5 fL (80.0-100.0); Mean Platelet Volume 7.8; Monocytes # (A) 0.3 k/uL (0-1.0); Monocytes % (A) 5 %; Neutrophils # (A) 4.2 k/uL (1.3-7.7); Neutrophils % (A) 64 %; Platelet Count 196 k/uL (150-450); RBC 5.35 m/uL (4.30-5.90); RDW 12.5 % (11.5-15.5); WBC 6.6 k/uL (3.8-10.6)
[2023-08-21 05:17] LABS: INR 1.1 (<1.2); Prothrombin Time 11.4 sec (10.0-12.5)
--- NOTE | 2023-08-21 05:22 | ED ---
Chest Pain HPI - General Source: patient Mode of arrival: ambulatory Limitations: no limitations <AlfaEmigdio - Last Filed: 08/21/23 05:21> - General Source: patient, RN notes reviewed Mode of arrival: ambulatory Limitations: no limitations <Anupam Pathak - Last Filed: 08/21/23 09:30> - General Chief Complaint: Chest Pain Stated Complaint: Chest Pain, tremors Time Seen by Provider: 08/21/23 06:20 - History of Present Illness Initial Comments: 33-year-old male presents emergency Department with chief complaint of palpitations, anxiety, chest pain. Patient states has been off he states mostly when he lays down and closes his eyes. Patient states he has no prior cardiac disease does have history of anxiety states has not been taken his Celexa as he was hospital with his recent past this week. Patient states he feels fine this time but states every time he sits down his mind starts racing. He denies any shortness breath denies any leg swelling patient is here with father. (Anupam Pathak) - Related Data Previous Rx's Medication Instructions Recorded LORazepam [Ativan] 0.5 mg PO TID PRN 3 Days #9 tab 08/21/23 Allergies Allergy/AdvReac Type Severity Reaction Status Date / Time No Known Allergies Allergy Verified 04/26/23 10:20 Review of Systems ROS Other: All systems not noted in ROS Statement are negative. <Emigdio Grimm - Last Filed: 08/21/23 05:21> ROS Other: All systems not noted in ROS Statement are negative. <Anupam Pathak - Last Filed: 08/21/23 09:30> ROS Statement: Those systems with pertinent positive or pertinent negative responses have been documented in the HPI. EKG Findings - EKG Results: EKG: interpreted by ERMD, sinus rhythm (Rate 78 bpm), normal axis, normal QRS, normal ST/T, no acute changes <Emigdio Grimm - Last Filed: 08/21/23 05:21> - EKG Comments: EKG Findings:: EKG performed at 4:28 sinus rhythm with a rate of 78 DC 128 QRS 90 QT/QTC 367/400 - EKG Results: EKG: interpreted by ERMD <Anupam Pathka - Last Filed: 08/21/23 09:30> Past Medical History Past Medical History: No Reported History History of Any Multi-Drug Resistant Organisms: None Reported Past Surgical History: Adenoidectomy Past Anesthesia/Blood Transfusion Reactions: No Reported Reaction Additional Past Anesthesia/Blood Transfusion Reaction / Comment(s): No blood transfusion Past Psychological History: No Psychological Hx Reported Smoking Status: Never smoker Past Alcohol Use History: Occasional Past Drug Use History: None Reported - Past Family History Mother Family Medical History: No Reported History <AlfaEmigdio - Last Filed: 08/21/23 05:21> General Exam Limitations: no limitations <Emigdio Grimm - Last Filed: 08/21/23 05:21> General appearance: alert, in no apparent distress Head exam: Present: atraumatic, normocephalic, normal inspection Eye exam: Present: normal appearance, PERRL, EOMI. Absent: scleral icterus, conjunctival injection, periorbital swelling ENT exam: Present: normal exam, normal oropharynx, mucous membranes moist Neck exam: Present: normal inspection, full ROM. Absent: tenderness, meningismus, lymphadenopathy Respiratory exam: Present: normal lung sounds bilaterally. Absent: respiratory distress, wheezes, rales, rhonchi, stridor Cardiovascular Exam: Present: regular rate, normal rhythm, normal heart sounds. Absent: systolic murmur, diastolic murmur, rubs, gallop, clicks <Anupam Pathak - Last Filed: 08/21/23 09:30> Course Vital Signs 08/21/23 04:19 Temperature 97.5 F L Pulse Rate 106 H Respiratory 18 Rate Blood Pressure 114/80 O2 Sat by Pulse 98 Oximetry Chest Pain MDM <Anupam Pathak - Last Filed: 08/21/23 09:30> - MDM Was pt. sent in by a medical professional or institution (, PA, B[employer]PERATORS SUPERVISOR, urgent care, hospital, or retirement...) When possible be specific @ -No Did you speak to anyone other than the patient for history (EMS, parent, family, police, friend...)? What history was obtained from this source @ -No Did you review nursing and triage notes (agree or disagree)? Why? @ -I reviewed and agree with nursing and triage notes Were old charts reviewed (outside hosp., previous admission, EMS record, old EKG, old radiological studies, urgent care reports/EKG's, retirement records)? Report findings @ -No old charts were reviewed Differential Diagnosis (chest pain, altered mental status, abdominal pain women, abdominal pain men, vaginal bleeding, weakness, fever, dyspnea, syncope, headache, dizziness, GI bleed, back pain, seizure, CVA, palpatations, mental health, musculoskeletal)? @ -Differential Chest Pain: Stable Angina, Unstable Angina, STEMI, NSTEMI Aortic Dissection, Pneumothorax, Musculoskeletal, Esophageal Spasm GERD, Cholecystitis, Pancreatitis, Zoster, this is not meant to be an all-inclusive list. EKG interpreted by me (3pts min.). @ -As above X-rays interpreted by me (1pt min.). @ -Chest x-ray shows no acute process CT interpreted by me (1pt min.). @ -None done U/S interpreted by me (1pt. min.). @ -None done What testing was considered but not performed or refused? (CT, X-rays, U/S, labs)? Why? @ -None What meds were considered but not given or refused? Why? @ -None Did you discuss the management of the patient with other professionals (professionals i.e. , PA, B[employer] SUPERVISOR, lab, RT, psych nurse, rn social work, shuttle preparation supervisor, teacher, lead security officer, case briefer)? Give summary @ -No Was smoking cessation discussed for >3mins.? @ -No Was critical care preformed (if so, how long)? @ -No Were there social determinants of health that impacted care today? How? (Homelessness, low income, unemployed, alcoholism, drug addiction, transportation, low edu. Level, literacy, decrease access to med. care, skilled nursing, rehab)? @ -No Was there de-escalation of care discussed even if they declined (Discuss DNR or withdrawal of care, Hospice)? DNR status @ -No What co-morbidities impacted this encounter? (DM, HTN, Smoking, COPD, CAD, Cancer, CVA, ARF, Chemo, Hep., AIDS, mental health diagnosis, sleep apnea, morbid obesity)? @ -None Was patient admitted / discharged? Hospital course, mention meds given and route, prescriptions, significant lab abnormalities, going to OR and other pertinent info. @ -Discharge patient's workup including laboratory studies are unremarkable. Patient's troponin is negative and less concerned for takotsubo. Patient's symptoms consistent with anxiety we discussed medications only if unable to 4 himself. Patient will be discharged with Ativan return parameters were discussed.] Undiagnosed new problem with uncertain prognosis? @ [N] Drug Therapy requiring intensive monitoring for toxicity (Heparin, Nitro, Insulin, Cardizem)? @ [N] Were any procedures done? @ [N] Diagnosis/symptom? @ -Anxiety Acute, or Chronic, or Acute on Chronic? @ -Acute Uncomplicated (without systemic symptoms) or Complicated (systemic symptoms)? @ -, Complicated] Side effects of treatment? @ [N] Exacerbation, Progression, or Severe Exacerbation? @ [N] Poses a threat to life or bodily function? How? (Chest pain, USA, MS, pneumonia, PE, COPD, DKA, ARF, appy, cholecystitis, CVA, Diverticulitis, Homicidal, Suicidal, threat to staff... and all critical care pts) @ [N] (Anupam Pathak) Disposition <Emigdio Grimm - Last Filed: 08/21/23 05:21> Is patient prescribed a controlled substance at d/c from ED?: No Time of Disposition: 06:21 <Anupam Pathak - Last Filed: 08/21/23 09:30> Clinical Impression: Anxiety Disposition: HOME SELF-CARE Condition: Stable Instructions (If sedation given, give patient instructions): Anxiety (ED) Additional Instructions: Please return to the Emergency Department if symptoms worsen or any other concerns. Prescriptions: LORazepam [Ativan] 0.5 mg PO TID PRN 3 Days #9 tab PRN Reason: Anxiety Referrals: Sachin Dodson MD [Primary Care Provider] - 1-2 days
[2023-08-21 05:25] LABS: ALT 19 U/L (4-49); AST 27 U/L (17-59); African American GFR (CKD) >90 (>60 ml/min/1.73 sqM); Albumin 4.6 g/dL (3.5-5.0); Alkaline Phosphatase 68 U/L (38-126); Blood Urea Nitrogen 16 mg/dL (9-20); Calcium 9.6 mg/dL (8.4-10.2); Carbon Dioxide 24 mmol/L (22-30); Chloride 105 mmol/L (98-107); Glucose 111 mg/dL (74-99); Magnesium 1.9 mg/dL (1.6-2.3); Non-African American GFR(CKD) >90 (>60 ml/min/1.73 sqM); Total Bilirubin 1.5 mg/dL (0.2-1.3); Total Protein 7.4 g/dL (6.3-8.2)
--- NOTE | 2023-08-21 06:06 | XR ---
EXAM: XR Chest, 2 Views CLINICAL HISTORY: Chest Pain TECHNIQUE: Frontal and lateral views of the chest. COMPARISON: 01/13/2023. FINDINGS: Lungs: Unremarkable. No consolidation. Pleural space: Unremarkable. No pneumothorax. Heart: Unremarkable. No cardiomegaly. Mediastinum: Unremarkable. Bones/joints: Unremarkable. IMPRESSION: No radiographic evidence of acute cardiopulmonary process.
[2023-08-21 06:10] LABS: Anion Gap 9 mmol/L; Potassium 4.5 mmol/L (3.5-5.1); Sodium 138 mmol/L (137-145)
== END 2023-08-21 06:49 | disposition home or self-care (01) ==
LOC: EC 04:13
DX: F41.9 Anxiety disorder, unspecified (principal)
CPT/HCPCS: 36415; 71046; 80053; 83735; 84484; 85025; 85610; 85730; 93005; 99285